=== PATIENT | female | born 1955 | race African-American/Black ===

== ENCOUNTER 2016-08-17 19:16 | Emergency (ER) | payer OTHER, MEDICARE, MEDICAID ==
[~2016-08-17] VITALS: Ht 170.2 cm; Wt 138.3 kg
[~2016-08-17 19:16] MED LIST: AMLO10TA4 PO; ATOR10TA PO; Albuterol Sulfate NEB; DICL100G7 TP; DOCU-27 PO; FLUT1DIS3 INH; FURO-68 PO; HYDR12.58 PO; Hydrocodone/Acetaminophen PO; MAGN400O4 PO; MECL12.5 PO; Polyethylene Glycol 3350 PO; RANI150C PO
[2016-08-17] MEDS ORDERED: KETOROLAC TROMETHAMINE 60 MG/2 ML INJ. IM ONE (19:45)
[2016-08-17] MEDS ORDERED: oxyCODONE/APAP 5/325 1 TAB TABLET PO ONE (19:45)
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
[2016-08-17] MEDS ORDERED: OXYC-323 PO (21:00)
[2016-08-17] MEDS ORDERED: ONDA4TAB10 PO (21:00)
[2016-08-17 23:58] VITALS: BP 126/66
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
== END 2016-08-18 | disposition home or self-care (01) ==
LOC: ER 19:16
DX: S13.4XXA Sprain of ligaments of cervical spine, initial encounter (principal); S09.90XA Unspecified injury of head, initial encounter; M54.12 Radiculopathy, cervical region; M25.561 Pain in right knee; F41.9 Anxiety disorder, unspecified; I11.0 Hypertensive heart disease with heart failure; I50.9 Heart failure, unspecified; K21.9 Gastro-esophageal reflux disease without esophagitis; Z98.61 Coronary angioplasty status; Z88.1 Allergy status to other antibiotic agents; V89.2XXA Person injured in unspecified motor-vehicle accident, traffic, initial encounter; Y92.413 State road as the place of occurrence of the external cause; Y93.89 Activity, other specified; Y99.8 Other external cause status
CPT/HCPCS: 71101; 72040; 72072; 96372; 99284; J1885

== ENCOUNTER 2017-05-05 16:41 | Emergency (ER) | payer MEDICARE, MEDICAID, OTHER ==
[2017-05-05] MEDS ORDERED: ONDANSETRON PF 4 MG/2 ML VIAL. ×2 (17:19)
[2017-05-05] MEDS: ONDANSETRON PF 4 MG/2 ML VIAL. IV ×2 (17:22)
[2017-05-05] MEDS: IV NORMAL SALINE 500ML BAG 500 ML IV ×2 (17:55)
[2017-05-05 18:03] LABS: ADD MAN DIFF? NO
[2017-05-05 18:06] LABS: BASO # 0.1 x10^3/uL (0.0-0.2); BASO % 1 % (0-3); EOS # 0.1 x10^3/uL (0.0-0.7); EOS % 2 % (0-3); HEMATOCRIT 33.4 % (36.0-47.0); HEMOGLOBIN 10.9 g/dL (12.0-15.5); LYMPH # 1.2 x10^3/uL (1.0-4.8); LYMPH % 13 % (24-48); MEAN CORPUSCULAR HEMOGLOBIN 26 pg (25-35); MEAN CORPUSCULAR HGB CONC 33 g/dL (31-37); MEAN CORPUSCULAR VOLUME 79 fL (79-100); MONO # 0.4 x10^3/uL (0.0-1.1); MONO % 4 % (0-9); NEUT # 7.8 x10^3uL (1.8-7.7); NEUT % 81 % (31-73); PLATELET COUNT 397 x10^3/uL (140-400); RED BLOOD COUNT 4.22 x10^6/uL (3.50-5.40); RED CELL DISTRIBUTION WIDTH 15.8 % (11.5-14.5); WHITE BLOOD COUNT 9.6 x10^3/uL (4.0-11.0)
[2017-05-05 18:37] LABS: ALBUMIN 2.7 g/dL (3.4-5.0); ALBUMIN/GLOBULIN RATIO 0.5 (1.0-1.7); ALK PHOS 78 U/L (46-116); ALT (SGPT) 7 U/L (14-59); ANION GAP 10 (6-14); AST (SGOT) 11 U/L (15-37); BLOOD UREA NITROGEN 17 mg/dL (7-20); BUN/CREATININE RATIO 19 (6-20); CALCIUM 8.7 mg/dL (8.5-10.1); CARBON DIOXIDE 31 mmol/L (21-32); CHLORIDE 104 mmol/L (98-107); CREATININE 0.9 mg/dL (0.6-1.0); GFR 76.3; GLUCOSE 131 mg/dL (70-99); SODIUM 145 mmol/L (136-145); TOTAL BILIRUBIN 0.1 mg/dL (0.2-1.0); TOTAL PROTEIN 8.3 g/dL (6.4-8.2)
[2017-05-05 18:38] LABS: TROPONINI < 0.017 ng/mL (0.000-0.055)
[2017-05-05 18:38] LABS: POTASSIUM 2.7 mmol/L (3.5-5.1)
[2017-05-05] MEDS: POTASSIUM CHLORIDE 20 MEQ TABLET.ER. PO ×2 (19:27)
[2017-05-05] MEDS: MECLIZINE HCL 12.5 MG TABLET. PO ×2 (19:27)
[2017-05-05] MEDS: PANTOPRAZOLE IV PUSH 40 MG VIAL. IVP ×2 (19:29)
== END 2017-05-05 21:15 | disposition home or self-care (01) ==
LOC: ER 21:15
DX: R42 Dizziness and giddiness (principal); R11.2 Nausea with vomiting, unspecified; E87.6 Hypokalemia; F41.9 Anxiety disorder, unspecified; I11.0 Hypertensive heart disease with heart failure; I50.9 Heart failure, unspecified; K21.9 Gastro-esophageal reflux disease without esophagitis; E78.00 Pure hypercholesterolemia, unspecified; G89.29 Other chronic pain; Z90.49 Acquired absence of other specified parts of digestive tract; Z90.710 Acquired absence of both cervix and uterus; Z98.51 Tubal ligation status; Z96.659 Presence of unspecified artificial knee joint; Z98.61 Coronary angioplasty status; Z88.1 Allergy status to other antibiotic agents
CPT/HCPCS: 36415; 71045; 80053; 84484; 85025; 93005; 96361; 96374; 96375; 99285-25; C9113; J2060; J2405; J7040; J8597

== ENCOUNTER 2017-10-10 20:58 | Emergency (ER) | payer MEDICARE, MEDICAID ==
[2017-10-10] MEDS: ONDANSETRON PF 4 MG/2 ML VIAL. IV (21:30)
[2017-10-10] MEDS: IV NORMAL SALINE 1000ML BAG 1,000 ML IV (21:30)
[2017-10-10] MEDS: PANTOPRAZOLE IV PUSH 40 MG VIAL. IVP (21:30)
[2017-10-10 21:33] LABS: ADD MAN DIFF? NO
[2017-10-10 21:41] LABS: BASO % 0 % (0-3); EOS % 0 % (0-3); HEMATOCRIT 31.4 % (36.0-47.0); HEMOGLOBIN 9.9 g/dL (12.0-15.5); LYMPH # 0.4 x10^3/uL (1.0-4.8); LYMPH % 3 % (24-48); MEAN CORPUSCULAR HEMOGLOBIN 26 pg (25-35); MEAN CORPUSCULAR HGB CONC 32 g/dL (31-37); MEAN CORPUSCULAR VOLUME 81 fL (79-100); MONO # 0.5 x10^3/uL (0.0-1.1); MONO % 4 % (0-9); NEUT # 12.9 x10^3uL (1.8-7.7); NEUT % 93 % (31-73); PLATELET COUNT 255 x10^3/uL (140-400); RED BLOOD COUNT 3.89 x10^6/uL (3.50-5.40); RED CELL DISTRIBUTION WIDTH 15.9 % (11.5-14.5); WHITE BLOOD COUNT 13.9 x10^3/uL (4.0-11.0)
[2017-10-10 21:48] LABS: ANION GAP 5 (6-14); BLOOD UREA NITROGEN 14 mg/dL (7-20); BUN/CREATININE RATIO 16 (6-20); CALCIUM 8.5 mg/dL (8.5-10.1); CARBON DIOXIDE 31 mmol/L (21-32); CHLORIDE 104 mmol/L (98-107); CREATININE 0.9 mg/dL (0.6-1.0); GFR 76.3; GLUCOSE 109 mg/dL (70-99); POTASSIUM 3.6 mmol/L (3.5-5.1); SODIUM 140 mmol/L (136-145)
[2017-10-10 21:54] LABS: ALBUMIN/GLOBULIN RATIO 0.5 (1.0-1.7); ALK PHOS 72 U/L (46-116); ALT (SGPT) 8 U/L (14-59); AST (SGOT) 12 U/L (15-37); TOTAL BILIRUBIN 0.3 mg/dL (0.2-1.0); TOTAL PROTEIN 8.8 g/dL (6.4-8.2)
[2017-10-10 22:23] LABS: BILIRUBIN,URINE NEGATIVE (NEG); CLARITY,URINE CLEAR; COLOR,URINE YELLOW; GLUCOSE,URINE NEGATIVE (NEG); NITRITE,URINE NEGATIVE (NEG); PH,URINE 6.5; PROTEIN,URINE 30 mg/dL (NEG-TRACE); UROBILINOGEN,URINE 0.2 mg/dL (0.2 mg/dL)
[2017-10-10] MEDS ORDERED: IOHEXOL 300 MG/ML 100ML VIAL. IV (22:30)
[2017-10-10] MEDS ORDERED: CONTRAST GIVEN. MC (22:30)
[2017-10-10 22:49] LABS: BACTERIA,URINE FEW /HPF (0-FEW); RBC,URINE OCC /HPF (0-2); SQUAMOUS EPITHELIAL CELL,UR FEW /LPF; WBC,URINE OCC /HPF (0-4)
== END 2017-10-10 23:15 | disposition home or self-care (01) ==
LOC: ER 20:58
DX: T62.94XA Toxic effect of unspecified noxious substance eaten as food, undetermined, initial encounter (principal); R10.84 Generalized abdominal pain; R11.2 Nausea with vomiting, unspecified; E78.00 Pure hypercholesterolemia, unspecified; F32.9 Major depressive disorder, single episode, unspecified; I89.0 Lymphedema, not elsewhere classified; I11.0 Hypertensive heart disease with heart failure; I50.9 Heart failure, unspecified; Z90.49 Acquired absence of other specified parts of digestive tract; Z90.710 Acquired absence of both cervix and uterus; Z98.51 Tubal ligation status; Z95.5 Presence of coronary angioplasty implant and graft; Z88.1 Allergy status to other antibiotic agents; X58.XXXA Exposure to other specified factors, initial encounter; Y93.89 Activity, other specified; Y99.8 Other external cause status; Y92.89 Other specified places as the place of occurrence of the external cause
CPT/HCPCS: 36415; 80053; 81001; 85025; 87086; 96361; 96374; 96375; 99284-25; C9113; J2405; J7030

== ENCOUNTER 2020-09-01 01:37 | Emergency (ER) | payer MEDICARE, OTHER ==
[~2020-09-01] VITALS: Ht 170.2 cm; Wt 142.0 kg
[~2020-09-01 01:37] MED LIST changes: +DICL100G54 TP; -DICL100G7 TP; +DICY20TA3 PO; +DOCU-109 PO; -DOCU-27 PO; -MAGN400O4 PO; +MAGN400O7 PO; +MECL-75 PO; +ONDA4TAB10 PO; +ONDA4TAB10 SL; +OXYC1TAB15 PO; +POTA20TA4 PO
--- NOTE | 2020-09-01 02:54 | PHYS DOC ---
Past Medical History Past Medical History: Anxiety, Bronchitis, CHF, GERD, High Cholesterol, H ypertension, Pancreatitis, Other Additional Past Medical Histor: VERTIGO, LYMPHEDEMA, GALLSTONES, CELLULIT IS,morbid obesity Past Surgical History: Angioplasty, Cholecystectomy, Hysterectomy, Knee Replacement, Tubal ligation, Other Additional Past Surgical Histo: CYST REMOVED FROM FINGER Smoking Status: Never Smoker Alcohol Use: None Drug Use: None General Adult EDM: Chief Complaint: MULTIPLE COMPLAINTS HPI: HPI: Patient is a 65 year old female present for evaluation of numbness and tingling in hands and feet. Patient states she has had 3 episodes in the last week. Tonights episodes worse than previous. States lets feel like the are swelling and have circulation cut off. Patient states during episode she became extremely anxious. Denies any chest pain or shortness of breath. Review of Systems: Review of Systems: Constitutional: Denies fever or chills. [] Eyes: Denies change in visual acuity. [] HENT: Denies nasal congestion or sore throat. [] Respiratory: Denies cough or shortness of breath. [] Cardiovascular: Denies chest pain or edema. [] GI: Denies abdominal pain, nausea, vomiting, bloody stools or diarrhea. [] : Denies dysuria. [] Musculoskeletal: Denies back pain or joint pain. [] Integument: Denies rash. [] Neurologic: Denies headache, focal weakness or sensory changes. [positive paresthesia] Endocrine: Denies polyuria or polydipsia. [] Lymphatic: Denies swollen glands. [] Psychiatric: Denies depression or anxiety. [] Heart Score: C/O Chest Pain: N/A Risk Factors: Risk Factors: DM, Current or recent (<one month) smoker, HTN, HLP, family histo ry of CAD, obesity. Risk Scores: Score 0 - 3: 2.5% MACE over next 6 weeks - Discharge Home Score 4 - 6: 20.3% MACE over next 6 weeks - Admit for Clinical Observation Score 7 - 10: 72.7% MACE over next 6 weeks - Early Invasive Strategies Allergies: Allergies: Allergies Coded Allergies Type Severity Reaction Last Updated Verified levofloxacin Allergy Intermediate 11/23/14 Yes Physical Exam: PE: General: alert, no acute distress. Skin: warm, dry and intact. Head:: Normocephalic, atraumatic. Neck: Trachea midline. Eyes: EOMI, Normal conjunctiva, No drainage CARDIOVASCULAR: Regular rate and rhythm RESPIRATORY: No respiratory distress Back: Full range of motion. MUSCULOSKELETAL: Full range of motion of bilateral upper and lower extremities. GASTROINTESTINAL: Abdomen soft without rebound or guarding. NEUROLOGICAL: Alert and noted to person, place and time. No neurological deficits observed Psychiatric: Cooperative. Normal judgment Current Patient Data: Vital Signs: Vital Signs Date Time Temp Pulse Resp B/P (MAP) Pulse Ox O2 Delivery O2 Flow Rate FiO2 09/01/20 02:06 79 22 177/72 (107) 95 Room Air 09/01/20 01:56 98.0 98.0 EKG: EKG: []EKG performed at 237 hours heart rate [address] elevation no ST depression no acute UT [] Radiology/Procedures: Radiology/Procedures: [] Course & Med Decision Making: Course & Med Decision Making Pertinent Labs and Imaging studies reviewed. (See chart for details) [] Results reviewed and discussed with patient and daughter. Patients CBC CMP within normal limits. EKG without acute ischemic changes. Will discharge patient home. Patient to follow-up with her primary care physician. Alba Disclaimer: Alba Disclaimer: This electronic medical record was generated, in whole or in part, using a voice recognition dictation system. Departure Departure Impression: Primary Impression: Paresthesia Disposition: 01 HOME / SELF CARE / HOMELESS Condition: STABLE Referrals: Racquel DAO MD (PCP) Patient Instructions: ParNICA Moore DO September 01, 2020 02:54
[2020-09-01 02:57] LABS: BASO % 0 % (0-3); EOS # 0.3 x10^3/uL (0.0-0.7); EOS % 3 % (0-3); HEMOGLOBIN 12.7 g/dL (12.0-15.5); LYMPH # 1.6 x10^3/uL (1.0-4.8); LYMPH % 16 % (24-48); MEAN CORPUSCULAR HEMOGLOBIN 27 pg (25-35); MEAN CORPUSCULAR HGB CONC 32 g/dL (31-37); MEAN CORPUSCULAR VOLUME 85 fL (79-100); MONO # 0.7 x10^3/uL (0.0-1.1); MONO % 7 % (0-9); NEUT # 7.4 x10^3/uL (1.8-7.7); NEUT % 74 % (31-73); PLATELET COUNT 233 x10^3/uL (140-400); RED BLOOD COUNT 4.73 x10^6/uL (3.50-5.40); RED CELL DISTRIBUTION WIDTH 15.4 % (11.5-14.5); WHITE BLOOD COUNT 10.1 x10^3/uL (4.0-11.0)
--- NOTE | 2020-09-01 03:10 | EKG ---
[facility] [address] [place] [address] Test Date: 2020-09-01 Test Time: 02:37:57 Pat Name: SUMMER KUMAR Department: Room: Gender: F Proj Engineer: : [id number] Requested By: NICA ELIZABETH Order Number: [id number] Reading MD: Measurements Intervals Tuttle Rate: 81 P: 39 ME: 172 QRS: 24 QRSD: 78 T: 64 QT: 380 QTc: 442 Interpretive Statements SINUS RHYTHM ATRIAL PREMATURE COMPLEX(ES) OTHERWISE NORMAL ECG RI6.01 No previous ECG available for comparison
[2020-09-01 03:23] LABS: CREATININE 1.1 mg/dL (0.6-1.0); GFR 59.9; POTASSIUM 3.8 mmol/L (3.5-5.1)
[2020-09-01 03:29] LABS: ALBUMIN 3.3 g/dL (3.4-5.0); ALBUMIN/GLOBULIN RATIO 0.7 (1.0-1.7); TOTAL BILIRUBIN 0.2 mg/dL (0.2-1.0); TOTAL PROTEIN 8.3 g/dL (6.4-8.2)
[2020-09-01 03:30] VITALS: BP 171/74
== END 2020-09-01 04:21 | disposition home or self-care (01) ==
LOC: ER 01:37
DX: R20.2 Paresthesia of skin (principal); E78.00 Pure hypercholesterolemia, unspecified; I11.0 Hypertensive heart disease with heart failure; I50.9 Heart failure, unspecified; K21.9 Gastro-esophageal reflux disease without esophagitis; E66.01 Morbid (severe) obesity due to excess calories; Z68.42 Body mass index [BMI] 45.0-49.9, adult; Z95.5 Presence of coronary angioplasty implant and graft; Z88.1 Allergy status to other antibiotic agents
CPT/HCPCS: 36415; 80053; 84484; 85025; 93005; 99284